=== PATIENT | female | born 1985 | race Caucasian/White ===

== ENCOUNTER 2016-11-13 15:25 | Emergency (ER) | payer BC ==
[2016-11-13 15:34] VITALS: TEMP 97.8
[2016-11-13] MEDS ORDERED: RX INFO: IV CONTRAST WAS GIVEN 1 EACH MISC MISCELLANE PRN (16:02)
[2016-11-13] MEDS ORDERED: SODIUM CHLORIDE 0.9% 1,000 ML IV STA (16:02)
[2016-11-13] MEDS ORDERED: methylPREDNISolone SOD SUCCI 125 MG/2 ML VIAL IV STA (16:34)
--- NOTE | 2016-11-13 16:34 | ED ---
General Adult HPI - General Chief complaint: Recheck/Abnormal Lab/Rx Stated complaint: numbness in face Time Seen by Provider: 11/13/16 15:50 Source: patient Mode of arrival: ambulatory Limitations: no limitations - History of Present Illness Initial comments: Patient is a 31-year-old female with history of gastric sleeve presenting with left facial numbness. Patient states she went to bed around 11:30 PM last night without any problems. She woke up around 8:30 AM with numbness to her left cheek. Patient denies any dental pain or problems. She did state she had a sinus infection in September which was treated with antibiotics. Patient states she's never had this before. Patient denies any weakness, slurring of words. - Related Data Previous Rx's Medication Instructions Recorded predniSONE 20 mg PO BID #10 tab 11/13/16 Allergies Allergy/AdvReac Type Severity Reaction Status Date / Time Sulfa (Sulfonamide Allergy Unknown Verified 11/13/16 15:35 Antibiotics) Review of Systems ROS Statement: Those systems with pertinent positive or pertinent negative responses have been documented in the HPI. Constitutional: No fever and no chills. HENT: No congestion, no rhinorrhea and no sore throat. Eyes: No discharge and no redness. Respiratory: No cough and no shortness of breath. Cardiovascular: No chest pain and no palpitations. Gastrointestinal: No nausea, no vomiting, no abdominal pain and no diarrhea. Genitourinary: No dysuria and no hematuria. Musculoskeletal: No back pain and no arthralgias. Skin: No pallor and no rash. Neurological: +Numbness. No dizziness and No headaches. ROS Other: All systems not noted in ROS Statement are negative. Past Medical History Past Medical History: No Reported History History of Any Multi-Drug Resistant Organisms: None Reported Past Surgical History: Bariatric Surgery, Section Additional Past Surgical History / Comment(s): gastric sleeve Past Psychological History: No Psychological Hx Reported Smoking Status: Never smoker Past Alcohol Use History: None Reported Past Drug Use History: None Reported General Exam - General Exam Comments Initial Comments: Constitutional: Patient appears well-developed and well-nourished. No distress. Head: Normocephalic and atraumatic. Eyes: Conjunctivae and EOM are normal. Right eye exhibits no discharge. Left eye exhibits no discharge. No scleral icterus. Ears: Bilateral normal TMs with normal landmarks Throat/mouth: No obvious swelling or tenderness to oral/gingival cavity Neck: Normal range of motion. Neck supple. Cardiovascular: Normal rate and regular rhythm. No murmur heard. Pulmonary/Chest: Effort normal and breath sounds normal. No respiratory distress. No wheezes. Abdominal: Soft. No distension. There is no tenderness. There is no rebound and no guarding. Musculoskeletal: Normal range of motion. No edema or tenderness. Neuro Exam: A&Ox3, speech is fluent and spontaneous CN 2: no visual field deficits, PERRL CN 3, 4, 6: EOMI CN 5: Patient with isolated decreased sensation over the left cheek. Sensation intact bilaterally to lateral cheeks. CN 7: Eyebrow raise and forehead wrinkle equal b/l. Patient does typically have bilateral cheek dimples for which the left one absent. CN 8: hearing intact to conversation CN 9, 10: palate elevation equal, no hoarseness to voice CN 11: shoulder shrug equal b/l CN 12: tongue protrusion w/o deviation Sensory: Intact to light touch, upper and lower extremities Motor: No pronator drift, no atrophy, normal muscle tone, b/l muscle strength 5/ 5 of hand flexors, biceps, triceps, quads, hamstrings, plantar and dorsiflexion Skin: Skin is warm and dry. Not diaphoretic. Nursing notes and vitals reviewed. Limitations: no limitations Course Vital Signs 11/13/16 15:33 Temperature 97.8 F Pulse Rate 90 Respiratory 20 Rate Blood Pressure 128/63 O2 Sat by Pulse 99 Oximetry - Reevaluation(s) Reevaluation #1: 11/13/16 18:38 Patient with improvement of symptoms. Less swelling to left side noted as her dimples are present bilateral cheeks. Awaiting CT results. Medical Decision Making - Medical Decision Making Patient is a 31-year-old female presenting with left cheek numbness. Exam showed left cheek swelling. Symptoms improved after signing Medrol. CBC, BMP, UA unremarkable. CT face and head unremarkable. Prior to discharge, patient was resting comfortably in bed. Course of stay improved left facial swelling decreased and sensation improving. Denies pain. Discussed physical exam and diagnostic tests with patient. Questions answered and patient is agreeable to discharge with close follow up with Primary Care Physician. Instructed to return to Emergency Department if symptoms worsen. - Lab Data Result diagrams: 11/13/16 16:50 11/13/16 16:50 Lab Results 11/13/16 11/13/16 11/13/16 Range/Units 16:50 16:50 16:50 WBC 11.8 H (3.8-10.6) k/uL RBC 4.71 (3.80-5.40) m/uL Hgb 12.0 (11.4-16.0) gm/dL Hct 38.0 (34.0-46.0) % MCV 80.8 (80.0-100.0) fL MCH 25.6 (25.0-35.0) pg MCHC 31.6 (31.0-37.0) g/dL RDW 14.0 (11.5-15.5) % Plt Count 275 (150-450) k/uL Neutrophils % 69 % Lymphocytes % 21 % Monocytes % 5 % Eosinophils % 1 % Basophils % 0 % Neutrophils # 8.2 H (1.3-7.7) k/uL Lymphocytes # 2.5 (1.0-4.8) k/uL Monocytes # 0.6 (0-1.0) k/uL Eosinophils # 0.1 (0-0.7) k/uL Basophils # 0.1 (0-0.2) k/uL Hypochromasia Slight Sodium 144 (137-145) mmol/L Potassium 3.9 (3.5-5.1) mmol/L Chloride 105 (98-107) mmol/L Carbon Dioxide 28 (22-30) mmol/L Anion Gap 11 mmol/L BUN 11 (7-17) mg/dL Creatinine 0.60 (0.52-1.04) mg/dL Est GFR (MDRD) Af Amer >60 (>60 ml/min/1.73 sqM) Est GFR (MDRD) Non-Af >60 (>60 ml/min/1.73 sqM) Glucose 83 (74-99) mg/dL Calcium 9.3 (8.4-10.2) mg/dL Urine Color Urine Appearance (Clear) Urine pH (5.0-8.0) Ur Specific Leivasy (1.001-1.035) Urine Protein (Negative) Urine Glucose (UA) (Negative) Urine Ketones (Negative) Urine Blood (Negative) Urine Nitrate (Negative) Urine Bilirubin (Negative) Urine Urobilinogen (<2.0) mg/dL Ur Leukocyte Esterase (Negative) Urine HCG, Qual Not Detected (Not Detectd) 11/13/16 Range/Units 16:50 WBC (3.8-10.6) k/uL RBC (3.80-5.40) m/uL Hgb (11.4-16.0) gm/dL Hct (34.0-46.0) % MCV (80.0-100.0) fL MCH (25.0-35.0) pg MCHC (31.0-37.0) g/dL RDW (11.5-15.5) % Plt Count (150-450) k/uL Neutrophils % % Lymphocytes % % Monocytes % % Eosinophils % % Basophils % % Neutrophils # (1.3-7.7) k/uL Lymphocytes # (1.0-4.8) k/uL Monocytes # (0-1.0) k/uL Eosinophils # (0-0.7) k/uL Basophils # (0-0.2) k/uL Hypochromasia Sodium (137-145) mmol/L Potassium (3.5-5.1) mmol/L Chloride (98-107) mmol/L Carbon Dioxide (22-30) mmol/L Anion Gap mmol/L BUN (7-17) mg/dL Creatinine (0.52-1.04) mg/dL Est GFR (MDRD) Af Amer (>60 ml/min/1.73 sqM) Est GFR (MDRD) Non-Af (>60 ml/min/1.73 sqM) Glucose (74-99) mg/dL Calcium (8.4-10.2) mg/dL Urine Color Yellow Urine Appearance Clear (Clear) Urine pH 5.5 (5.0-8.0) Ur Specific Leivasy 1.025 (1.001-1.035) Urine Protein Trace H (Negative) Urine Glucose (UA) Negative (Negative) Urine Ketones Negative (Negative) Urine Blood Negative (Negative) Urine Nitrate Negative (Negative) Urine Bilirubin Negative (Negative) Urine Urobilinogen <2.0 (<2.0) mg/dL Ur Leukocyte Esterase Negative (Negative) Urine HCG, Qual (Not Detectd) Disposition Clinical Impression: Paresthesia Disposition: HOME SELF-CARE Condition: Good Instructions: Paresthesia (ED) Prescriptions: predniSONE 20 mg PO BID #10 tab Referrals: Julien Cardozo MD [Primary Care Provider] - 1-2 days
[2016-11-13 17:00] LABS: Appearance,Urine Clear (Clear); Basophils # (A) 0.1 k/uL (0-0.2); Basophils % (A) 0 %; Bilirubin,Urine Negative (Negative); CH 25.7; Eosinophils # (A) 0.1 k/uL (0-0.7); Eosinophils % (A) 1 %; Glucose,Urine (UA) Negative (Negative); HDW 2.65; Hypochromasia Slight; Ketones,Urine Negative (Negative); Leukocyte Esterase,Urine Negative (Negative); Luc # (Auto) 0.34; Luc % (Auto) 3; Lymphocytes # (A) 2.5 k/uL (1.0-4.8); Lymphocytes % (A) 21 %; MCH 25.6 pg (25.0-35.0); MCHC 31.6 g/dL (31.0-37.0); MCV 80.8 fL (80.0-100.0); Mean Platelet Volume 7.2; Monocytes # (A) 0.6 k/uL (0-1.0); Monocytes % (A) 5 %; Neutrophils # (A) 8.2 k/uL (1.3-7.7); Neutrophils % (A) 69 %; Nitrite,Urine Negative (Negative); PH, Urine 5.5 (5.0-8.0); Protein,Urine Trace (Negative); RBC 4.71 m/uL (3.80-5.40); Specific Gravity,Urine 1.025 (1.001-1.035); UA Billing (MACRO vs. MICRO) CHEM; Urobilinogen,Urine <2.0 mg/dL (<2.0); WBC 11.8 k/uL (3.8-10.6); WBC (Perox) 12.04
[2016-11-13 17:09] LABS: Anion Gap 11 mmol/L; Blood Urea Nitrogen 11 mg/dL (7-17); Calcium 9.3 mg/dL (8.4-10.2); Carbon Dioxide 28 mmol/L (22-30); Chloride 105 mmol/L (98-107); Glucose 83 mg/dL (74-99); Non-African American GFR(MDRD) >60 (>60 ml/min/1.73 sqM); Potassium 3.9 mmol/L (3.5-5.1); Sodium 144 mmol/L (137-145)
--- NOTE | 2016-11-13 18:46 | CT ---
EXAMINATION TYPE: CT facial bones w con DATE OF EXAM: 11/13/2016 6:24 PM COMPARISON: NONE HISTORY: Left sided facial numbness CT DLP: 1659.9 mGycm Automated exposure control for dose reduction was used. CONTRAST: CT scan of the facial bones is performed with IV Contrast, patient injected with 100 mL of Omnipaque 300. TECHNIQUE: CT scan of the sinuses is performed without contrast, axial images are obtained, coronal r eformatted images are also reviewed. FINDINGS: The orbital margins are intact. There is fairly normal aeration of the paranasal sinuses. T here is bilateral patency of the ostiomeatal complex. Maxilla is intact. There is no evidence of a fr acture. The mandible appears intact. I see no pathologic enhancement. The submandibular salivary glan ds are symmetric. Parotid glands appear symmetric. Nasal bone appears intact. IMPRESSION: Negative CT scan of the facial bones.
--- NOTE | 2016-11-13 18:47 | CT ---
EXAMINATION TYPE: CT brain wo con DATE OF EXAM: 11/13/2016 6:24 PM COMPARISON: NONE HISTORY: Left sided facial numbness CT DLP: 1569.5 mGycm Automated exposure control for dose reduction was used. FINDINGS: Ventricles and sulci appear normal. There is no mass effect nor midline shift. There is no sign of in tracranial hemorrhage. The calvarium is intact. IMPRESSION: Negative unenhanced head CT scan.
[2016-11-13 19:07] VITALS: BP 142/85; PULSE 71; RESP 16
== END 2016-11-13 19:07 | disposition home or self-care (01) ==
LOC: EC 15:25
DX: R20.2 Paresthesia of skin (principal); R22.0 Localized swelling, mass and lump, head; Z88.2 Allergy status to sulfonamides
CPT/HCPCS: 99284 ×2; 96374 ×2; 96361 ×2; 36415; 80048; 85025; 81003; 81025; 70487; 70450; J2930; Q9967

== ENCOUNTER → 2019-07-16 | Outpatient (CLI) | payer BC ==
--- NOTE | 2019-07-16 09:16 | US ---
EXAMINATION TYPE: US thyroid st tissue head/neck DATE OF EXAM: 07/16/2019 COMPARISON: NONE CLINICAL HISTORY: E04.9 Nontoxic goiter. Enlarged gland per physician, difficulty swallowing GLAND SIZE: Right Lobe: 5.8 x 2.8 x 2.8 cm Overall Parenchyma: heterogenous Left Lobe: 4.6 x 1.3 x 1.8 cm Overall Parenchyma: homogeneous Isthmus Thickness: 0.7 cm NODULES RIGHT: # of nodules measured on right: 3 1. 2.4 X 1.6 x 2.0 cm hypoechoic mixed nodule at the upper pole with well-defined margins. This nod ule is wider than tall and shows intranodular vascularity. Prior size: no previous 2. 1.7 X 1.2 x 1.7 cm hypoechoic mixed nodule at the mid pole with well-defined margins. This nodule is wider than tall and shows intranodular vascularity. Prior size: no previous 3. 1.3 X 1.2 x 1.2 cm hypoechoic mixed nodule at the lower pole with well-defined margins. This nodu le is wider than tall and shows intranodular vascularity. Prior size: no previous LEFT: # of nodules measured on left: 1 1. 1.2 X 1.4 x 1.3 cm hypoechoic solid nodule at the mid pole with well-defined margins. This nodul e is taller than wide and shows intranodular vascularity. Prior size: no previous ISTHMUS: # of nodules measured in the isthmus: 0 Bilateral neck scanned, no evidence of lymphadenopathy. IMPRESSION: Enlarged, multinodular thyroid goiter. Fine-needle aspiration could be considered for the most domina nt nodule on the right measuring 2.4 cm. Alternatively nuclear medicine thyroid uptake scan could shakira luate for cold nodule.
== END | disposition home or self-care (01) ==
LOC: RADUSWWP 07:44
PROVIDERS: ATTEND Family Medicine
DX: E04.2 Nontoxic multinodular goiter (principal)
CPT/HCPCS: 76536

== ENCOUNTER 2019-08-28 08:59 | Day surgery (SDC) | payer BC ==
[2019-08-28 09:33] VITALS: RESP 16; TEMP 98.2
[2019-08-28 11:19] VITALS: BP 115/76; PULSE 81
--- NOTE | 2019-08-28 12:45 | US ---
EXAMINATION TYPE: US FNA thyroid each add lesion, US FNA thyroid each add lesion, US FNA thyroid each add lesion, US FNA thyroid first lesion DATE OF EXAM: 08/28/2019 COMPARISON: NONE HISTORY: Thyroid nodules. Maximal barrier technique was utilized. After informed consent, skin overlying the upper pole right lobe thyroid nodule was localized with ultrasound and the overlying skin prepped and draped. Ultrasou nd was utilized using sterile technique. Lidocaine was used for local anesthesia. Five passes with a 25-gauge needle were made into the nodule and aspirated specimen was submitted to cytology. Using si milar technique the midpole right lobe thyroid nodule was sampled and specimen submitted to cytology, following the lower pole right lobe thyroid nodule was sampled with 5 passes with a 25-gauge needle and aspirated specimen submitted to cytology. Next the left lobe dominant nodule in the midpole was s ampled under ultrasound guidance as on the right, 25-gauge needles were advanced on 5 separate occasi ons and specimen submitted to cytology. Following the procedure hemostasis achieved. No immediate co mplication. The patient discharged in stable condition. IMPRESSION: STATUS POST ULTRASOUND GUIDED FINE NEEDLE ASPIRATION OF THYROID NODULES, PATHOLOGY IS ARNOL NEVES. THIS PROCEDURE WAS PERFORMED BY THE UNDERSIGNED.
== END 2019-08-28 11:05 | disposition home or self-care (01) ==
LOC: RADPROMAIN 08:59
PROVIDERS: ATTEND Family Medicine
DX: E04.2 Nontoxic multinodular goiter (principal)
CPT/HCPCS: 10005; 10006; 88173; 88305

== ENCOUNTER → 2020-03-28 | Outpatient (CLI) | payer BC ==
[2020-03-28 15:09] VITALS: BMI 48.0
== END | disposition home or self-care (01) ==
LOC: DBWHC3 10:03
PROVIDERS: ATTEND Family Medicine
DX: E28.2 Polycystic ovarian syndrome (principal); E66.01 Morbid (severe) obesity due to excess calories
CPT/HCPCS: 97802

== ENCOUNTER → 2020-05-18 | Outpatient (CLI) | payer BC ==
--- NOTE | 2020-05-18 11:44 | XR ---
EXAMINATION TYPE: XR knee complete LT DATE OF EXAM: 05/18/2020 COMPARISON: NONE HISTORY: Pain TECHNIQUE: Three views are submitted. FINDINGS: Joint spaces are preserved. Osseous structures are intact. No acute fracture seen. Mild hypertroph ic changes of the knee joint. Small amount of fluid in the suprapatellar bursa. IMPRESSION: 1. No acute fracture or dislocation. Small amount of fluid in the suprapatellar bursa. If there is c oncern for internal derangement of the knee correlate with MRI.
== END | disposition home or self-care (01) ==
LOC: RADXRMAIN 11:22
PROVIDERS: ATTEND Family Medicine
DX: M25.462 Effusion, left knee (principal)

== ENCOUNTER → 2020-05-24 | Outpatient (CLI) | payer BC ==
[2020-05-24 12:09] LABS: Calcium 9.2 mg/dL (8.4-10.2)
== END | disposition home or self-care (01) ==
LOC: EC 11:30
PROVIDERS: ATTEND Surgery
DX: E21.3 Hyperparathyroidism, unspecified (principal)
CPT/HCPCS: 36415; 82306; 82310; 83970

== ENCOUNTER → 2020-06-07 | Outpatient (CLI) | payer BC | END | disposition home or self-care (01) | LOC: LABMAIN 13:27 | PROVIDERS: ATTEND Surgery | DX: Z53.9 Procedure and treatment not carried out, unspecified reason (principal) ==

== ENCOUNTER 2021-07-09 17:16 | Emergency (ER) | payer BC ==
[2021-07-09 17:33] VITALS: TEMP 98.6
[2021-07-09] MEDS ORDERED: SODIUM CHLORIDE 0.9% 1,000 ML IV ONE (18:06)
[2021-07-09] MEDS ORDERED: MORPHINE SULFATE 4 MG/ML SYRINGE IVP STA ×2 (18:06→20:52)
[2021-07-09] MEDS ORDERED: Rhogam IMMUNE GLOBULIN 1,500 UNIT/1 ML IM ONE (18:06)
[2021-07-09 18:42] LABS: Basophils % (A) 0 %; Eosinophils # (A) 0.1 k/uL (0-0.7); Eosinophils % (A) 1 %; HCT 38.9 % (34.0-46.0); HGB 12.3 gm/dL (11.4-16.0); Lymphocytes # (A) 1.7 k/uL (1.0-4.8); Lymphocytes % (A) 14 %; MCH 24.7 pg (25.0-35.0); MCHC 31.5 g/dL (31.0-37.0); MCV 78.2 fL (80.0-100.0); Mean Platelet Volume 7.4; Microcytosis Slight; Monocytes # (A) 0.6 k/uL (0-1.0); Monocytes % (A) 5 %; Neutrophils # (A) 9.6 k/uL (1.3-7.7); Neutrophils % (A) 78 %; Platelet Count 300 k/uL (150-450); RBC 4.97 m/uL (3.80-5.40); RDW 15.8 % (11.5-15.5); WBC 12.3 k/uL (3.8-10.6)
[2021-07-09 19:02] LABS: INR 0.9 (<1.2)
[2021-07-09 19:10] LABS: ALT 23 U/L (4-34); AST 23 U/L (14-36); African American GFR (CKD) >90 (>60 ml/min/1.73 sqM); Alkaline Phosphatase 68 U/L (38-126); Anion Gap 10 mmol/L; Blood Urea Nitrogen 9 mg/dL (7-17); Carbon Dioxide 22 mmol/L (22-30); Chloride 106 mmol/L (98-107); Glucose 102 mg/dL (74-99); Non-African American GFR(CKD) >90 (>60 ml/min/1.73 sqM); Potassium 4.1 mmol/L (3.5-5.1); Sodium 138 mmol/L (137-145); Total Bilirubin 0.4 mg/dL (0.2-1.3); Total Protein 7.1 g/dL (6.3-8.2)
[2021-07-09 19:11] LABS: Partial Thromboplastin Time 21.9 sec (22.0-30.0)
[2021-07-09 19:26] LABS: HCG,Quantitative Serum 260.5 mIU/mL
--- NOTE | 2021-07-09 20:47 | US ---
EXAMINATION TYPE: Transabdominal DATE OF EXAM: 07/09/2021 7:38 PM COMPARISON: This is first ultrasound examination for this . CLINICAL HISTORY: Pain and clotting. Hx 2 miscarriages, 1 . . EXAM PERFORMED: Transvaginal (TV) and Transabdominal (TA) EXAM MEASUREMENTS: GESTATIONAL AGE / DATING Physician Established: (11 weeks/1 day) EDC: 01/27/2022 Dates by LMP: (10 weeks/5 days) EDC: 01/30/2022 Dates by First Scan: This is first scan at this facility. Dates by Current Scan for: No gestational sac seen at this time. MATERNAL ANATOMY Uterus: 12.2 x 5.7 x 5.7 cm. Difficult visualization of structures, limiting this examination. Anteve rted. Possible partially septated uterus appearance of endometrium. Subcentimeter anechoic areas seen in cervix. Right Ovary: 3.8 x 2.2 x 2.1 cm. Anechoic areas seen, largest measures 1.6 x 1.2 x 1.3 cm. Left Ovary: Not visualized. No left adnexal mass. Post CDS / Adnexa: Appear wnl. Presence of free fluid: Not seen. Presence of corpus luteal cyst: Anechoic areas seen in right ovary, possible. GESTATION / SURVEY IUP: No gestational sac seen at this time. Endometrium appears thick and some vascularity is seen. Date of LMP: 04/25/2021 Beta HcG (if available): 260.5 IMPRESSION: No gestational sac visualized at this time; would suggest follow-up ultrasound and beta hCG.
[2021-07-09] MEDS ORDERED: ACET/COD 300 MG/30 MG STARTER PACK 6 TAB BTL PO STA (22:14)
--- NOTE | 2021-07-09 22:15 | ED ---
General Adult HPI - General Chief complaint: Vaginal Bleeding Stated complaint: 10wks preg/Vaginal bleeding Time Seen by Provider: 07/09/21 17:35 Source: patient Mode of arrival: wheelchair Limitations: no limitations - History of Present Illness Initial comments: 36-year-old female currently 10 weeks presents emergency Department with reported vaginal bleeding. Patient conceived using IUI. She did see the reproductive [facility] in [place] and recently just started seeing Dr. Hughes as she graduated from her reproductive center. She has seen Dr. Hughes once last week. She is scheduled for an ultrasound tomorrow. Last period was April 25. The patient was having abdominal pain similar to contractions all day today. At 3 PM today the patient began having heavy vaginal bleeding. She called her OB office recommended that she come into the emergency department for further evaluation. Patient is on Lovenox injections for her history of MTHFR. No fevers or chills. No abdominal trauma. No other alleviating, precipitating or modifying factors - Related Data Home Medications Medication Instructions Recorded Confirmed Ascorbic Acid [Vitamin C] 500 mg PO HS 07/09/21 07/09/21 Calcium Citrate 630mg 630 mg PO TID 07/09/21 07/09/21 Cholecalciferol (Vitamin D3) 125 mcg PO TID 07/09/21 07/09/21 [Vitamin D3 (125 MCG = 5,000 IU)] Cyanocobalamin (Vitamin B-12) 1,000 mcg PO Q7D 07/09/21 07/09/21 [Vitamin B-12] Ferrous Sulfate [Feosol] 325 mg PO BID 07/09/21 07/09/21 Multivitamins, Thera [Multivitamin 1 tab PO DAILY 07/09/21 07/09/21 (formulary)] Vitamin B Complex 1 cap PO DAILY 07/09/21 07/09/21 metFORMIN HCL [Glucophage] 1,000 mg PO BID-W/MEALS 07/09/21 07/09/21 Allergies Allergy/AdvReac Type Severity Reaction Status Date / Time adhesive Allergy Rash/Hives Verified 07/09/21 21:28 Sulfa (Sulfonamide Allergy Unknown Verified 07/09/21 21:28 Antibiotics) Review of Systems ROS Statement: Those systems with pertinent positive or pertinent negative responses have been documented in the HPI. ROS Other: All systems not noted in ROS Statement are negative. Past Medical History Past Medical History: Thyroid Disorder Additional Past Medical History / Comment(s): back and knee pain- on [place] History of Any Multi-Drug Resistant Organisms: None Reported Past Surgical History: Bariatric Surgery, Section Additional Past Surgical History / Comment(s): gastric sleeve, duodenal switch. Past Anesthesia/Blood Transfusion Reactions: No Reported Reaction Past Psychological History: Anxiety, Bipolar Smoking Status: Never smoker Past Alcohol Use History: Rare Past Drug Use History: None Reported - Past Family History Mother Family Medical History: No Reported History General Exam Limitations: no limitations Course Vital Signs 07/09/21 17:30 Temperature 98.6 F Pulse Rate 102 H Respiratory 24 Rate Blood Pressure 119/84 O2 Sat by Pulse 100 Oximetry Medical Decision Making - Medical Decision Making Upon arrival patient was placed into room 4. A thorough history and physical exam is performed. IV is established the patient was given informal grams of morphine for pain. Laboratory studies are conducted. Hemoglobin 12.3. HCG Quant is 260. Ultrasound was performed and does not demonstrate a gestational sac. Endometrium is thickened. Pelvic exam is performed and does demonstrate a small amount of bright red blood. Patient does have passage of some tissue which is sent for cytogenetic testing. Patient's blood type is A- and therefore she is given a dose of Auralgan. I attempted to contact Dr. Hughes however we did not receive a call back from his office. Patient will be discharged home at this time with a Tylenol 3 started pack. Instructed to follow-up with Dr. Hughes as scheduled tomorrow morning. Return to the emergency room for any new or worsening symptoms. Patient was agreement to plan and discharged home in stable condition - Lab Data Result diagrams: 07/09/21 18:26 07/09/21 18:26 Lab Results 07/09/21 07/09/21 07/09/21 Range/Units 18:26 18:26 18:26 WBC 12.3 H (3.8-10.6) k/uL RBC 4.97 (3.80-5.40) m/uL Hgb 12.3 (11.4-16.0) gm/dL Hct 38.9 (34.0-46.0) % MCV 78.2 L (80.0-100.0) fL MCH 24.7 L (25.0-35.0) pg MCHC 31.5 (31.0-37.0) g/dL RDW 15.8 H (11.5-15.5) % Plt Count 300 (150-450) k/uL MPV 7.4 Neutrophils % 78 % Lymphocytes % 14 % Monocytes % 5 % Eosinophils % 1 % Basophils % 0 % Neutrophils # 9.6 H (1.3-7.7) k/uL Lymphocytes # 1.7 (1.0-4.8) k/uL Monocytes # 0.6 (0-1.0) k/uL Eosinophils # 0.1 (0-0.7) k/uL Basophils # 0.0 (0-0.2) k/uL Microcytosis Slight PT 10.0 (9.0-12.0) sec INR 0.9 (<1.2) APTT 21.9 L (22.0-30.0) sec Sodium 138 (137-145) mmol/L Potassium 4.1 (3.5-5.1) mmol/L Chloride 106 (98-107) mmol/L Carbon Dioxide 22 (22-30) mmol/L Anion Gap 10 mmol/L BUN 9 (7-17) mg/dL Creatinine 0.65 (0.52-1.04) mg/dL Est GFR (CKD-EPI)AfAm >90 (>60 ml/min/1.73 sqM) Est GFR (CKD-EPI)NonAf >90 (>60 ml/min/1.73 sqM) Glucose 102 H (74-99) mg/dL Calcium 10.0 (8.4-10.2) mg/dL Total Bilirubin 0.4 (0.2-1.3) mg/dL AST 23 (14-36) U/L ALT 23 (4-34) U/L Alkaline Phosphatase 68 (38-126) U/L Total Protein 7.1 (6.3-8.2) g/dL Albumin 4.0 (3.5-5.0) g/dL HCG, Quant 260.5 mIU/mL Blood Type Blood Type Recheck Bld Type Recheck Status Antibody Screen 07/09/21 Range/Units 18:26 WBC (3.8-10.6) k/uL RBC (3.80-5.40) m/uL Hgb (11.4-16.0) gm/dL Hct (34.0-46.0) % MCV (80.0-100.0) fL MCH (25.0-35.0) pg MCHC (31.0-37.0) g/dL RDW (11.5-15.5) % Plt Count (150-450) k/uL MPV Neutrophils % % Lymphocytes % % Monocytes % % Eosinophils % % Basophils % % Neutrophils # (1.3-7.7) k/uL Lymphocytes # (1.0-4.8) k/uL Monocytes # (0-1.0) k/uL Eosinophils # (0-0.7) k/uL Basophils # (0-0.2) k/uL Microcytosis PT (9.0-12.0) sec INR (<1.2) APTT (22.0-30.0) sec Sodium (137-145) mmol/L Potassium (3.5-5.1) mmol/L Chloride (98-107) mmol/L Carbon Dioxide (22-30) mmol/L Anion Gap mmol/L BUN (7-17) mg/dL Creatinine (0.52-1.04) mg/dL Est GFR (CKD-EPI)AfAm (>60 ml/min/1.73 sqM) Est GFR (CKD-EPI)NonAf (>60 ml/min/1.73 sqM) Glucose (74-99) mg/dL Calcium (8.4-10.2) mg/dL Total Bilirubin (0.2-1.3) mg/dL AST (14-36) U/L ALT (4-34) U/L Alkaline Phosphatase (38-126) U/L Total Protein (6.3-8.2) g/dL Albumin (3.5-5.0) g/dL HCG, Quant mIU/mL Blood Type A Negative Blood Type Recheck A Neg Bld Type Recheck Status No Antibody Screen NEGATIVE Disposition Clinical Impression: Incomplete Disposition: HOME SELF-CARE Condition: Stable Instructions (If sedation given, give patient instructions): Miscarriage (ED) Additional Instructions: Please follow with Dr. Hughes in the morning. Return to the emergency room for any new or worsening symptoms Is patient prescribed a controlled substance at d/c from ED?: No Referrals: Juliano Nielsen [Primary Care Provider] - 1-2 days Pool Hughes DO [REFERRING] - 1-2 days Time of Disposition: 22:15
[2021-07-09 22:46] VITALS: BP 126/76; PULSE 84; RESP 18
== END 2021-07-09 22:56 | disposition home or self-care (01) ==
LOC: EC 17:16
DX: O03.4 Incomplete spontaneous abortion without complication (principal); Z3A.10 10 weeks gestation of pregnancy
CPT/HCPCS: 36415; 86900; 86901; 88305; 80053; 85025; 85610; 85730; 86850; 84702; 76801; 76817; 99284; 96374; 96376; 96361; 96372; J2790; J2270

== ENCOUNTER → 2021-07-25 | Outpatient (CLI) | payer BC | END | disposition home or self-care (01) | LOC: LABWHC1 07-24 09:20 | PROVIDERS: ATTEND Pathology Anatomic Pathology & Clinical Pathology | DX: O02.1 Missed abortion (principal) | CPT/HCPCS: 36415 ==

== ENCOUNTER → 2023-12-29 | Outpatient (CLI) | payer BC ==
[2023-12-29 16:21] LABS: % Iron Saturation 10.64 (12.00-45.00); Ferritin 19.2 ng/mL (10.0-291.0); HCT 45.1 % (37.2-46.3); MCH 27.7 pg (27.0-32.0); MCV 89.3 FL (80.0-97.0); Mean Platelet Volume 10.6 FL (9.5-12.2); NRBC Per 100 WBC 0 X 10*3/uL (0.00-0.01); Platelet Count 308 X 10*3/uL (140-440); RBC 5.05 X 10*6/uL (4.10-5.20); RDW 14.5 % (11.5-14.5); WBC 15.38 X 10*3/uL (4.50-10.00)
[2023-12-29 16:22] LABS: Basophils # (A) 0.06 X 10*3/uL (0.00-0.10); Basophils % (A) 0.4 %; Eosinophils # (A) 0.26 X 10*3/uL (0.04-0.35); Eosinophils % (A) 1.7 %; Lymphocytes # (A) 2.24 X 10*3/uL (0.90-5.00); Lymphocytes % (A) 14.6 %; Monocytes # (A) 1.07 X 10*3/uL (0.20-1.00); Neutrophils # (A) 11.66 X 10*3/uL (1.80-7.70); Neutrophils % (A) 75.7 %
== END | disposition home or self-care (01) ==
LOC: LABWHC1 07:13
PROVIDERS: ATTEND Family Medicine
DX: D64.9 Anemia, unspecified (principal)
CPT/HCPCS: 36415; 82728; 83540; 83550; 85025

== ENCOUNTER → 2024-12-29 | Outpatient (CLI) | payer BC ==
[2024-12-30 06:29] LABS: HGB 14.3 g/dL (12.0-15.0); MCH 29.7 pg (27.0-32.0); MCHC 32.5 g/dL (32.0-37.0); MCV 91.3 FL (80.0-97.0); Mean Platelet Volume 10.3 FL (9.5-12.2); NRBC Per 100 WBC 0 X 10*3/uL (0.00-0.01); Platelet Count 269 X 10*3/uL (140-440); RBC 4.82 X 10*6/uL (4.10-5.20); RDW 13.6 % (11.5-14.5); WBC 9.07 X 10*3/uL (4.50-10.00)
[2024-12-30 09:39] LABS: % Iron Saturation 15.73 (12.00-45.00); Ferritin 19.9 ng/mL (10.0-291.0)
== END | disposition home or self-care (01) ==
LOC: LABWHC1 11:11
PROVIDERS: ATTEND Surgery
DX: D50.9 Iron deficiency anemia, unspecified (principal); E56.9 Vitamin deficiency, unspecified; K91.2 Postsurgical malabsorption, not elsewhere classified
CPT/HCPCS: 36415; 82728; 83540; 83550; 85027